=== PATIENT | female | born 1965 | race Caucasian/White ===

== ENCOUNTER → 2019-05-29 | Outpatient (CLI) | payer MEDICAID | LOC: ZCOL.LAB 17:04 | DX: H60.01 Abscess of right external ear (principal) ==

== ENCOUNTER → 2019-08-01 | Outpatient (CLI) | payer MEDICAID | LOC: ZCOL.LAB 17:01 | DX: H60.01 Abscess of right external ear (principal) ==

== ENCOUNTER 2021-09-29 17:55 | Inpatient (IN) | payer MEDICAID ==
[2021-09-29] VITALS (290 sets, daily range): BP systolic 112–143; BP diastolic 79–94; PULSE 79–84; TEMP 96.3–97; O2SAT 72–100
[~2021-09-29] VITALS: Ht 162.6 cm; Wt 90.1 kg
[2021-09-29 19:02] LABS: ARTERIAL BLD GAS O2 SATURATION 92.6 % (92-100); ARTERIAL BLD GAS TCO2 CT 28.1; ARTERIAL BLOOD GAS HCO3 26.5 meq/L (22-26); ARTERIAL BLOOD GAS PCO2 52.3 mmHg (35-45); ARTERIAL BLOOD GAS PO2 72.1 mmHg (80-100); ARTERIAL BLOOD GAS pH 7.32 (7.35-7.45)
[2021-09-29 19:28] LABS: BASO % 0.5 % (0.0-2.0); EOS % 0.5 % (0.0-4.0); GRAN # 4.7 K/mm3 (1.4-6.5); HEMATOCRIT 28.8 % (37.0-47.0); HEMOGLOBIN 8.9 g/dl (12.5-16.0); LYMPH # 1.1 K/mm3 (1.2-3.4); LYMPH % 16.5 % (20.0-51.0); MEAN CELL VOLUME 91 fl (80.0-100.0); MEAN CORPUSCULAR HEMOGLOBIN 28 pg (27-31); MEAN CORPUSCULAR HGB CONC 31 g/dl (33.0-37.0); MEAN PLATELET VOLUME 10.1 fl (7.4-10.4); MONO # 0.6 K/mm3 (0.1-0.6); MONO % 8.7 % (1.7-9.3); PLATELET COUNT 268 K/mm3 (130-400); RED BLOOD COUNT 3.15 M/mm3 (4.10-5.30); REDCELL DISTRIBUTION WIDTH-CV 14.4 % (11.5-14.5)
[2021-09-29 19:48] LABS: BILIRUBIN,TOTAL 0.3 mg/dL (0.2-1.2); CALCIUM 8.4 mg/dL (8.4-10.2); CREATININE, serum 3.94 mg/dL (0.57-1.11); MAGNESIUM 1.7 mg/dL (1.6-2.6); PHOSPHOROUS 5.8 mg/dL (2.3-4.7); POTASSIUM 4.6 mmol/L (3.5-4.5); TOTAL PROTEIN 7.5 gm/dL (6.2-8.1)
[2021-09-29 19:55] LABS: TROPONIN-I 0.053 ng/mL (0.00-0.033)
[2021-09-29 20:36] LABS: MUCOUS Present (NOT PRESENT); PH 6 (5-8); SQUAMOUS EPITHELIAL 0-2 /hpf (0-10); URINE APPEARANCE Hazy (CLEAR/HAZY); URINE BACTERIA Rare /hpf (NONE SEEN); URINE BILIRUBIN Negative (NEGATIVE); URINE BLOOD 2+ (NEGATIVE); URINE COLOR Yellow (YELLOW); URINE GLUCOSE Negative (NEGATIVE); URINE KETONE Negative (NEGATIVE); URINE LEUKOCYTE ESTERASE 3+ (NEGATIVE); URINE NITRATE Negative (NEGATIVE); URINE PROTEIN(semi-quant) 1+ (NEGATIVE); URINE RBC 20-50 /hpf (0-2); URINE UROBILINOGEN Negative (NEGATIVE)
[2021-09-29 20:51] LABS: ARTERIAL BLD GAS O2 SATURATION 95.3 % (92-100); ARTERIAL BLD GAS TCO2 CT 26.9; ARTERIAL BLOOD GAS BASE EXCESS 0.2 (-2-2); ARTERIAL BLOOD GAS HCO3 25.6 meq/L (22-26); ARTERIAL BLOOD GAS PCO2 44.8 mmHg (35-45); ARTERIAL BLOOD GAS PO2 85.8 mmHg (80-100); ARTERIAL BLOOD GAS pH 7.37 (7.35-7.45)
[2021-09-29 21:08] LABS: COLLECTION METHOD CLEAN CATCH
[2021-09-29] MEDS ORDERED: TOPAMAX 100MG100 M1 PO (22:54)
[2021-09-29] MEDS ORDERED: SEROQUEL 200MG200 MG PO ×3 (22:55→22:56)
[2021-09-29] MEDS ORDERED: LEVOXYL0.05 MG PO (22:56)
[2021-09-29] MEDS ORDERED: LYRICA 150MG C150 MG PO (22:57)
[2021-09-29] MEDS ORDERED: AMBIEN 5MG TABLE5 MG PO (22:58)
[2021-09-29] MEDS ORDERED: WELLBUTRIN XL300 M1 PO (22:58)
[2021-09-29] MEDS ORDERED: REQUIP0.25 MG PO (22:59)
[2021-09-29] MEDS ORDERED: PRINIVIL10 MG PO (22:59)
[2021-09-29] MEDS ORDERED: EFFEXOR XR75 MG/CAP PO (23:00)
[2021-09-29] MEDS ORDERED: XANAX2 MG PO (23:00)
[2021-09-29] MEDS ORDERED: PRILOSEC 20MG20 MG PO (23:01)
[2021-09-29] MEDS ORDERED: MINIPRESS 5M5 MG/CAP PO (23:02)
[2021-09-29] MEDS ORDERED: GLUCOPHAGE500 MG/TAB PO (23:02)
[2021-09-29] MEDS ORDERED: LASIX 40MG TABL40 MG PO (23:02)
[2021-09-30] VITALS (811 sets, daily range): BP systolic 114–156; BP diastolic 63–98; PULSE 89–106; TEMP 97.2–97.6; O2SAT 55–100
[2021-09-30] MEDS ORDERED: WELLBUTRIN SR100 M1 PO (00:41)
[2021-09-30] MEDS ORDERED: TYLENOL 500MG500 MG PO (00:41)
[2021-09-30] MEDS ORDERED: EPOGEN2000 U/ML IJ (00:42)
[2021-09-30] MEDS ORDERED: FERRO-TIME325 MG PO (00:42)
[2021-09-30] MEDS ORDERED: NICODERM C14 MG/PATC TD (00:42)
[2021-09-30] MEDS ORDERED: SEROQUEL50 MG PO (00:42)
[2021-09-30] MEDS ORDERED: LEVEMIR FLEX100 U/ML SQ (00:43)
[2021-09-30] MEDS ORDERED: MINIPRESS 1M1 MG/CAP PO (00:44)
[2021-09-30] MEDS ORDERED: LIPITOR20 MG PO (00:44)
[2021-09-30] MEDS ORDERED: LYRICA 75MG CAP75 MG PO (00:44)
[2021-09-30] MEDS ORDERED: COMBIRESP IH (00:44)
[2021-09-30] MEDS ORDERED: FLONASEALLERGY NS (00:45)
[2021-09-30] MEDS ORDERED: NOVOLOG FLEX100 U/ML SQ (00:45)
[2021-09-30] MEDS ORDERED: ATROVENT I0.2 MG/1 M IH (00:45)
[2021-09-30] MEDS ORDERED: SYNTHROID0.05 MG/TA (00:45)
[2021-09-30] MEDS ORDERED: SEROQUEL 200MG200 MG PO (00:46)
[2021-09-30] MEDS ORDERED: REQUIP 0.5MG0.5 MG PO (00:46)
[2021-09-30] MEDS ORDERED: PRILOSEC 20MG20 MG PO (00:46)
[2021-09-30 07:00] LABS: CALCIUM 8.2 mg/dL (8.4-10.2); CREATININE, serum 3.95 mg/dL (0.57-1.11); MAGNESIUM 1.7 mg/dL (1.6-2.6); PHOSPHOROUS 5.9 mg/dL (2.3-4.7); POTASSIUM 4.7 mmol/L (3.5-4.5)
[2021-09-30 07:05] LABS: BASO % 0.2 % (0.0-2.0); GRAN # 5.4 K/mm3 (1.4-6.5); GRAN % 88.2 % (42.2-75.2); LYMPH # 0.5 K/mm3 (1.2-3.4); LYMPH % 8.5 % (20.0-51.0); MEAN CELL VOLUME 95 fl (80.0-100.0); MEAN CORPUSCULAR HGB CONC 30 g/dl (33.0-37.0); MEAN PLATELET VOLUME 10.8 fl (7.4-10.4); MONO # 0.1 K/mm3 (0.1-0.6); MONO % 1.8 % (1.7-9.3); PLATELET COUNT 277 K/mm3 (130-400); RED BLOOD COUNT 3.23 M/mm3 (4.10-5.30); REDCELL DISTRIBUTION WIDTH-CV 14.6 % (11.5-14.5)
[2021-09-30 07:06] LABS: HEMATOCRIT 30.6 % (37.0-47.0); HEMOGLOBIN 9.2 g/dl (12.5-16.0); MEAN CORPUSCULAR HEMOGLOBIN 28 pg (27-31)
[2021-09-30 13:33] LABS: INR 1.1 (0.8-3.0)
[2021-09-30 15:14] LABS: PLEURAL FLUID RBC 1000 /mm3 (0-0); PLEURAL FLUID WBC 333 /mm3
[2021-09-30 15:18] LABS: PLEURAL FLUID APPEARANCE CLEAR; PLEURAL FLUID COLOR YELLOW
[2021-10-01] VITALS (831 sets, daily range): BP systolic 126–152; BP diastolic 67–89; PULSE 82–94; TEMP 97.2–99.1; O2SAT 78–100
[2021-10-01 01:39] LABS: HEPATITIS B SURFACE ANTIBODY <2.0 (()); HEPATITIS B SURFACE ANTIGEN Negative (Negative); HEPATITIS C VIRUS ANTIBODY Negative (Negative)
[2021-10-01 07:32] LABS: MEAN CELL VOLUME 92 fl (80.0-100.0); MEAN CORPUSCULAR HGB CONC 31 g/dl (33.0-37.0); MEAN PLATELET VOLUME 10.7 fl (7.4-10.4); PLATELET COUNT 317 K/mm3 (130-400); RED BLOOD COUNT 2.85 M/mm3 (4.10-5.30); REDCELL DISTRIBUTION WIDTH-CV 14.4 % (11.5-14.5)
[2021-10-01 07:47] LABS: HEMATOCRIT 26.3 % (37.0-47.0); HEMOGLOBIN 8.1 g/dl (12.5-16.0); MEAN CORPUSCULAR HEMOGLOBIN 28 pg (27-31)
[2021-10-01 08:04] LABS: CALCIUM 8.4 mg/dL (8.4-10.2); CREATININE, serum 3.4 mg/dL (0.57-1.11)
[2021-10-01 08:45] LABS: BAND 2 % (0-10); LYMPHOCYTE 7 % (20.0-51.0); MICROCYTOSIS 1+; NEUTROPHILS 88 % (42.0-75.2); PLATELET ESTIMATE NORMAL (NORMAL)
[2021-10-01 10:39] LABS: PLEURAL FLUID RBC 0 /mm3 (0-0); PLEURAL FLUID WBC 313 /mm3
[2021-10-01 10:48] LABS: PLEURAL FLUID APPEARANCE HAZY; PLEURAL FLUID COLOR YELLOW
[2021-10-02 03:54] VITALS: BP 134/78; PULSE 100; TEMP 97.5
[2021-10-02 07:35] LABS: MEAN CELL VOLUME 89 fl (80.0-100.0); MEAN CORPUSCULAR HGB CONC 32 g/dl (33.0-37.0); MEAN PLATELET VOLUME 10.7 fl (7.4-10.4); PLATELET COUNT 281 K/mm3 (130-400); RED BLOOD COUNT 2.82 M/mm3 (4.10-5.30); REDCELL DISTRIBUTION WIDTH-CV 14.6 % (11.5-14.5)
[2021-10-02 07:37] LABS: HEMATOCRIT 25.2 % (37.0-47.0); HEMOGLOBIN 8.1 g/dl (12.5-16.0); MEAN CORPUSCULAR HEMOGLOBIN 29 pg (27-31)
[2021-10-02 07:51] VITALS: BP 129/74; PULSE 97; TEMP 97.6
[2021-10-02 07:51] LABS: CALCIUM 8.5 mg/dL (8.4-10.2); CREATININE, serum 3.75 mg/dL (0.57-1.11); POTASSIUM 4.2 mmol/L (3.5-4.5)
[2021-10-02 08:08] LABS: BAND 2 % (0-10); LYMPHOCYTE 10 % (20.0-51.0); METAMYELOCYTE 1 % (0-0); NEUTROPHILS 83 % (42.0-75.2); PLATELET ESTIMATE NORMAL (NORMAL)
[2021-10-02 11:41] VITALS: BP 142/88; PULSE 90; TEMP 98.1
[2021-10-02 16:14] VITALS: BP 145/79; PULSE 89; TEMP 97.6
[2021-10-02 19:45] VITALS: BP 138/81; PULSE 93; TEMP 98
[2021-10-03 00:35] VITALS: BP 133/74; PULSE 94; TEMP 97.7
[2021-10-03 04:47] VITALS: BP 139/79; PULSE 86; TEMP 97.9
[2021-10-03 07:23] VITALS: BP 148/79; PULSE 84; TEMP 98.5
[2021-10-03] MEDS ORDERED: ANORO IH (08:11)
[2021-10-03] MEDS ORDERED: PREDNISONE10 MG PO (08:13)
[2021-10-03 09:38] LABS: CALCIUM 8.7 mg/dL (8.4-10.2); CREATININE, serum 3.87 mg/dL (0.57-1.11)
[2021-10-03 11:49] VITALS: BP 149/94; PULSE 98; TEMP 97.9
== END 2021-10-03 14:20 | disposition home health service (06) | DRG 871 ==
LOC: IMCU 17:55 → ICU 18:36 → MEDICAL 10-01 16:59
PROVIDERS: Internal Medicine; Internal Medicine Pulmonary Disease; Nurse Practitioner; Nurse Practitioner Family; ADMIT Student in an Organized Health Care Education/Training Program
PROC: 5A1D70Z Performance of Urinary Filtration, Intermittent, Less than 6 Hours Per Day (ICD-10-PCS; 2021-09-30)
PROC: 0W993ZZ Drainage of Right Pleural Cavity, Percutaneous Approach (ICD-10-PCS; principal; 2021-10-01)
DX: A41.9 Sepsis, unspecified organism (principal); J96.02 Acute respiratory failure with hypercapnia; J96.01 Acute respiratory failure with hypoxia; I50.33 Acute on chronic diastolic (congestive) heart failure; I21.A1 Myocardial infarction type 2; G92.9 Unspecified toxic encephalopathy; N17.9 Acute kidney failure, unspecified; N39.0 Urinary tract infection, site not specified; I13.0 Hypertensive heart and chronic kidney disease with heart failure and stage 1 through stage 4 chronic kidney disease, or unspecified chronic kidney disease; J90 Pleural effusion, not elsewhere classified; Z66 Do not resuscitate; E78.5 Hyperlipidemia, unspecified; J44.9 Chronic obstructive pulmonary disease, unspecified; F31.9 Bipolar disorder, unspecified; Z96.642 Presence of left artificial hip joint; K74.60 Unspecified cirrhosis of liver; D64.9 Anemia, unspecified; E03.9 Hypothyroidism, unspecified; F17.210 Nicotine dependence, cigarettes, uncomplicated; E11.22 Type 2 diabetes mellitus with diabetic chronic kidney disease; N18.9 Chronic kidney disease, unspecified; Z87.440 Personal history of urinary (tract) infections; Z88.6 Allergy status to analgesic agent; Z88.8 Allergy status to other drugs, medicaments and biological substances; Z90.710 Acquired absence of both cervix and uterus
CPT/HCPCS: 99223-AI; 99232-AI; 99233-AI; 99239; J0696; J1644; J1815; J2543; J2920; J2930; J3370; J7030

== ENCOUNTER → 2021-10-27 | Outpatient (CLI) | payer MEDICAID ==
[~2021-10-27] VITALS: Ht 162.6 cm; Wt 73.7 kg
[~2021-10-27] MED LIST: AMBIEN 5MG TABLE5 MG PO; ANORO IH; ATROVENT I0.2 MG/1 M IH; COMBIRESP IH; EFFEXOR XR75 MG/CAP PO; EPOGEN2000 U/ML IJ; FERRO-TIME325 MG PO; FLONASEALLERGY NS; GLUCOPHAGE500 MG/TAB PO; LASIX 40MG TABL40 MG PO; LEVEMIR FLEX100 U/ML SQ; LEVOXYL0.05 MG PO; LIPITOR20 MG PO; LYRICA 150MG C150 MG PO; LYRICA 75MG CAP75 MG PO; MINIPRESS 1M1 MG/CAP PO; MINIPRESS 5M5 MG/CAP PO; NICODERM C14 MG/PATC TD; NOVOLOG FLEX100 U/ML SQ; PREDNISONE10 MG PO; PRILOSEC 20MG20 MG PO; PRINIVIL10 MG PO; REQUIP 0.5MG0.5 MG PO; REQUIP0.25 MG PO; SEROQUEL 200MG200 MG PO; SEROQUEL50 MG PO; SYNTHROID0.05 MG/TA; TOPAMAX 100MG100 M1 PO; TYLENOL 500MG500 MG PO; WELLBUTRIN SR100 M1 PO; WELLBUTRIN XL300 M1 PO; XANAX2 MG PO
== END ==
LOC: COL.CARD 10:03
DX: R07.89 Other chest pain (principal); R06.02 Shortness of breath

== ENCOUNTER 2021-11-23 07:57 | Day surgery (SDC) | payer MEDICAID ==
[~2021-11-23] VITALS: Ht 177.8 cm; Wt 75.4 kg
[2021-11-23 08:43] LABS: CALCIUM 9.5 mg/dL (8.4-10.2); CREATININE, serum 1.61 mg/dL (0.57-1.11); POTASSIUM 4.3 mmol/L (3.5-4.5)
[2021-11-23 09:03] VITALS: BP 155/76; PULSE 85; TEMP 97.7
[2021-11-23] MEDS ORDERED: XANAX2 MG PO (09:15)
[2021-11-23] MEDS ORDERED: COMBIRESP IH (09:16)
[2021-11-23] MEDS ORDERED: LASIX 40MG TABL40 MG PO (09:16)
[2021-11-23] MEDS ORDERED: ZESTRIL 10MG10 MG PO (09:18)
[2021-11-23] MEDS ORDERED: NOVOLOG FLEX100 U/ML SQ (09:18)
[2021-11-23] MEDS ORDERED: TOPAMAX 100MG100 M1 PO (09:20)
[2021-11-23] MEDS ORDERED: EFFEXOR XR75 MG/CAP PO (09:21)
[2021-11-23] MEDS ORDERED: AMBIEN 5MG TABLE5 MG PO (09:21)
[2021-11-23] MEDS ORDERED: FLOMAX 0.40.4 MG/CAP PO (11:03)
[2021-11-23 11:45] VITALS: BP 157/77; PULSE 81; TEMP 97.9
--- NOTE | 2021-11-23 11:45 | NUR ---
PT TO BAY 7 PER CART FROM PACU. REPORT RECEIVED. VS OBTAINED. TOLERATING WATER. DENIES ANY NEEDS AT THIS TIME.
[2021-11-23 11:58] VITALS: TEMP 98.5
[2021-11-23 12:00] VITALS: BP 165/86; PULSE 86
[2021-11-23 12:15] VITALS: BP 162/78; PULSE 86
--- NOTE | 2021-11-23 12:45 | NUR ---
1200-PT TOLERATING JUICE AND JELLO. DENIES ANY NEEDS. 1230-PT UP TO BATHROOM AND VOIDED WITHOUT DIFFICULTY. IV DC'D AT THIS TIME. 1240-DISCHARGE EDUCATION COMPLETED WITH PT. VERBALIZED UNDERSTANDING OF HOME AND FOLLOW UP CARE. ALL QUESTIONS ANSWERED. DISCHARGE PAPERWORK GIVEN TO PT. 1245-PT OFF UNIT PER WHEELCHAIR. PT DISCHARGED TO HOME PER [facility].
== END 2021-11-23 12:45 | disposition home or self-care (01) ==
LOC: SDCO 07:57
PROVIDERS: Nurse Anesthetist, Certified Registered
DX: N20.1 Calculus of ureter (principal); I10 Essential (primary) hypertension; I25.2 Old myocardial infarction; K21.9 Gastro-esophageal reflux disease without esophagitis; E11.9 Type 2 diabetes mellitus without complications; Z87.440 Personal history of urinary (tract) infections; F17.210 Nicotine dependence, cigarettes, uncomplicated; Z79.4 Long term (current) use of insulin; Z79.84 Long term (current) use of oral hypoglycemic drugs
CPT/HCPCS: C1769; C2617; J0690; J3010; J7120

== ENCOUNTER → 2022-01-07 | Outpatient (CLI) | payer MEDICAID ==
--- NOTE | 2022-01-04 13:20 | NUR ---
LMOM WITH DATE,TIME AND INSTRUCTIONS WITH CALL BACK NUMBER
[~2022-01-07] VITALS: Ht 177.8 cm; Wt 75.0 kg
[~2022-01-07] MED LIST changes: +FLOMAX 0.40.4 MG/CAP PO; +ZESTRIL 10MG10 MG PO
[2022-01-07 10:44] VITALS: BP 166/85; PULSE 74; TEMP 97.8
[2022-01-07 12:00] VITALS: BP 134/81; PULSE 96
[2022-01-07 12:01] VITALS: BP 151/83; PULSE 96
[2022-01-07 12:02] VITALS: BP 159/80; PULSE 96
[2022-01-07 12:03] VITALS: BP 155/82; PULSE 94
== END ==
LOC: COL.CARD 12-23 10:45
DX: R07.9 Chest pain, unspecified (principal); R06.02 Shortness of breath
CPT/HCPCS: A9500; J2785; J3010